=== PATIENT | male | born 1980 | race Two or more races ===

== ENCOUNTER 2025-01-18 15:22 | Inpatient (IN) | payer OTHER ==
[~2025-01-18] VITALS: Ht 162.6 cm; Wt 93.5 kg
[2025-01-18 16:01] LABS: PLATELET COUNT (AUTO) 283 K/uL (150-450); RED BLOOD CELL COUNT(AUTO) 4.68 MIL/uL (4.50-5.90); RED CELL DISTRIBUTION WIDTH 13.5 % (11.5-14.5); WHITE BLOOD COUNT (AUTO) 7.9 K/uL (4.5-11.0)
[2025-01-18 16:13] LABS: CALCIUM, TOTAL 8.5 mg/dL (8.8-10.5); CREATININE 1.11 mg/dL (0.60-1.30); GLOMERULAR FILTR. RATE CALC > 60 mL/min (>60); GLUCOSE,RANDOM 124 mg/dL (70-110); SODIUM SERUM 139 mmol/L (136-145); UREA NITROGEN, BLOOD 12 mg/dL (7-18)
[2025-01-18 16:33] LABS: ALCOHOL, BLOOD (SERUM) < 3 mg/dL (0-10)
[2025-01-18 17:09] LABS: APPEARANCE,URINE CLEAR (CLEAR); COVID AG,FIA SOURCE NASAL SWAB; GLUCOSE, URINE (UA) NEGATIVE (NEGATIVE); LEUKOCYTE ESTERASE ,URINE NEGATIVE (NEGATIVE); NITRATE,URINE NEGATIVE (NEGATIVE); OCCULT BLOOD,URINE NEGATIVE (NEGATIVE); PH,URINE DRUG SCREEN 7.0 (5.0-8.0); SPECIFIC GRAVITIY, URINE 1.015 (1.003-1.030)
[2025-01-18 17:15] LABS: ALCOHOL, URINE DRUG SCREEN NEGATIVE (NEGATIVE); AMPHET/METH SCREEN,URINE NEGATIVE (NEGATIVE); BARBITURATE SCREEN, URINE NEGATIVE (NEGATIVE); CANNABINOID SCREEN,URINE NEGATIVE (NEGATIVE); COCAINE SCREEN,URINE NEGATIVE (NEGATIVE); METHADONE SCREEN, URINE NEGATIVE (NEGATIVE)
[2025-01-18 17:38] LABS: SARS-COV2 (COVID) ANTIGEN,FIA Negative (Negative)
[2025-01-18 17:59] LABS: SQUAMOUS EPITHELIAL CELL,UR Few /LPF (None Seen)
[2025-01-18] MEDS ORDERED: ZOLPIDEM TARTRATE 10 MG TABLET PO PRN (21:15)
[2025-01-18 22:15] VITALS: O2SAT 98
[2025-01-18 23:00] VITALS: BP 151/103; PULSE 85; RESP 18; TEMP 97.6; O2SAT 100
[2025-01-18] MEDS ORDERED: NICOTINE 14 MG/24 HOUR PATCH TD PRN (23:15)
[2025-01-18] MEDS ORDERED: PETROLATUM,WHITE 28 GM JELLY TP PRN (23:15)
[2025-01-18] MEDS ORDERED: IBUPROFEN 400 MG TABLET PO PRN (23:15)
[2025-01-18] MEDS ORDERED: MAG HYDROX/ALUMINUM HYD/SIMETH ES 30 ML SUSPENSION UDCUP PO PRN (23:15)
[2025-01-18] MEDS ORDERED: LOPERAMIDE HCL 2 MG CAPSULE PO PRN (23:15)
[2025-01-18] MEDS ORDERED: ACETAMINOPHEN 325 MG TABLET PO PRN (23:15)
[2025-01-18] MEDS ORDERED: MAGNESIUM HYDROXIDE SUSPENSION 30 ML UDCUP PO PRN (23:15)
[2025-01-18] MEDS ORDERED: DOCUSATE SODIUM 100 MG CAPSULE PO PRN (23:15)
[2025-01-18] MEDS ORDERED: ONDANSETRON 4 MG TABLET PO PRN (23:15)
[2025-01-18] MEDS ORDERED: ALBUTEROL SULFATE HFA 90 MCG/PUFF 8 GM INHALER IH PRN (23:15)
[2025-01-18] MEDS ORDERED: GuaiFENesin/D-METHORPHAN [SUGAR-FREE] 200-20MG/10 ML SYRUP UDCUP PO PRN (23:15)
[2025-01-19 06:40] LABS: PLATELET COUNT (AUTO) 275 K/uL (150-450); RED BLOOD CELL COUNT(AUTO) 4.78 MIL/uL (4.50-5.90); RED CELL DISTRIBUTION WIDTH 14.0 % (11.5-14.5); WHITE BLOOD COUNT (AUTO) 7.3 K/uL (4.5-11.0)
[2025-01-19 07:13] LABS: ASPARTATE AMINOTRANSFERASE 13 U/L (15-37); CALCIUM, TOTAL 8.5 mg/dL (8.8-10.5); CREATININE 0.68 mg/dL (0.60-1.30); GLOMERULAR FILTR. RATE CALC > 60 mL/min (>60); GLUCOSE,RANDOM 89 mg/dL (70-110); SODIUM SERUM 136 mmol/L (136-145); TOTAL PROTEIN, SERUM 6.7 g/dL (6.4-8.2); UREA NITROGEN, BLOOD 12 mg/dL (7-18)
[2025-01-19 07:28] LABS: CHOL/HDL RATIO 3.2 (4.2-7.3); LDL CHOL (CALC.) 74.0 mg/dL (0-130)
[2025-01-19 09:15] VITALS: BP 143/98; PULSE 96; RESP 18; TEMP 97.3; O2SAT 100
[2025-01-19] MEDS ORDERED: MAGNESIUM HYDROXIDE SUSPENSION 30 ML UDCUP PO PRN (11:15)
[2025-01-19] MEDS ORDERED: PROMETHAZINE HCL 25 MG TABLET PO PRN (11:15)
[2025-01-19] MEDS ORDERED: TUBERCULIN, PURIFIED PROTEIN DERIVATIVE 5 TU/0.1 ML SYRINGE ID ONE (11:15)
[2025-01-19] MEDS ORDERED: ACETAMINOPHEN 325 MG TABLET PO PRN (11:15)
[2025-01-19] MEDS ORDERED: LOPERAMIDE HCL 2 MG CAPSULE PO PRN (11:15)
[2025-01-19] MEDS ORDERED: GuaiFENesin/D-METHORPHAN [SUGAR-FREE] 200-20MG/10 ML SYRUP UDCUP PO PRN (11:15)
[2025-01-19] MEDS ORDERED: MAG HYDROX/ALUMINUM HYD/SIMETH ES 30 ML SUSPENSION UDCUP PO PRN (11:15)
[2025-01-19] MEDS ORDERED: GABAPENTIN 300 MG CAPSULE PO PRN (16:15)
[2025-01-19] MEDS: THIAMINE 100 MG TABLET PO SCH (16:36)
[2025-01-19] MEDS: GABAPENTIN 100 MG CAPSULE PO SCH (16:36)
[2025-01-19 20:50] VITALS: BP 150/108; PULSE 87; RESP 18; TEMP 98.1; O2SAT 99
[2025-01-19] MEDS: GABAPENTIN 300 MG CAPSULE PO SCH (20:57)
[2025-01-19] MEDS: DULoxetine HCL 30 MG CAPSULE PO SCH (20:57)
[2025-01-19] MEDS: MELATONIN 5 MG TABLET PO SCH (20:57)
[2025-01-19] MEDS ORDERED: MIRTAZAPINE 15 MG TABLET PO SCH (21:00)
[2025-01-20 07:57] LABS: CHOL/HDL RATIO 3.3 (4.2-7.3); LDL CHOL (CALC.) 81.0 mg/dL (0-130)
[2025-01-20] MEDS: FOLIC ACID 1 MG TABLET PO SCH (08:32)
[2025-01-20] MEDS: MULTIVITAMINS WITH MINERALS, THERAPEUTIC TABLET PO SCH (08:32)
[2025-01-20] MEDS: NALTREXONE HCL 50 MG TABLET PO SCH (08:32)
[2025-01-20 08:55] VITALS: BP 142/107; PULSE 106; RESP 18; TEMP 98.4; O2SAT 99
[2025-01-20] MEDS ORDERED: GABA-1181 PO ×2 (11:00→15:44)
[2025-01-20] MEDS ORDERED: GABA-1216 PO ×2 (11:00→15:44)
[2025-01-20] MEDS ORDERED: MELA5TAB40 PO ×2 (11:00→15:44)
[2025-01-20] MEDS ORDERED: DULO30CA62 PO ×2 (11:00→15:44)
[2025-01-20] MEDS ORDERED: NALT50TA33 PO ×2 (11:00→15:44)
== END 2025-01-20 16:55 | disposition home or self-care (01) | DRG 885 ==
LOC: EMS 15:22 → 3EI 22:58
PROVIDERS: ADMIT Psychiatry & Neurology Psychiatry; ATTEND Psychiatry & Neurology Psychiatry
PROC: GZHZZZZ Group Psychotherapy (ICD-10-PCS; principal; 2025-01-19)
PROC: GZ56ZZZ Individual Psychotherapy, Supportive (ICD-10-PCS; 2025-01-19)
DX: F33.2 Major depressive disorder, recurrent severe without psychotic features (principal); T42.6X2A Poisoning by other antiepileptic and sedative-hypnotic drugs, intentional self-harm, initial encounter; E66.01 Morbid (severe) obesity due to excess calories; F41.1 Generalized anxiety disorder; G47.33 Obstructive sleep apnea (adult) (pediatric); I10 Essential (primary) hypertension; G47.00 Insomnia, unspecified; Z20.822 Contact with and (suspected) exposure to COVID-19; Z59.9 Problem related to housing and economic circumstances, unspecified; Z63.9 Problem related to primary support group, unspecified; Z65.3 Problems related to other legal circumstances; Z55.9 Problems related to education and literacy, unspecified; Z90.49 Acquired absence of other specified parts of digestive tract; Z91.51 Personal history of suicidal behavior; Z68.35 Body mass index [BMI] 35.0-35.9, adult; Y92.89 Other specified places as the place of occurrence of the external cause
CPT/HCPCS: 80048; 80053; 80061; 80307; 81001; 83036; 84439; 84443; 85025; 86592; 93005; 99291; G0480; G0481